=== PATIENT | female | born 1990 | race Caucasian/White ===

== ENCOUNTER 2018-10-14 06:20 | Day surgery (SDC) | payer BC ==
[~2018-10-14 06:20] MED LIST: Sodium Chloride 0.9% 10 ML SDV IV PRN; Sodium Chloride 0.9% 10 ML Syringe FLUSH PRN; Sodium Chloride 0.9% 2.5 ML Syringe FLUSH PRN
[2018-10-14] MEDS ORDERED: Propofol 200 MG/20 ML SDV ONE (06:59)
[2018-10-14] MEDS ORDERED: fentaNYL 250 MCG/5 ML SDV ONE (06:59)
[2018-10-14] MEDS ORDERED: Midazolam 1 MG/ML 2 ML SDV ONE (06:59)
[2018-10-14] MEDS ORDERED: Lactated Ringers 1,000 ML IV SCH (07:00)
[2018-10-14] MEDS ORDERED: Dexamethasone 4 MG/ML 5 ML MDV ONE (07:01)
[2018-10-14] MEDS ORDERED: Ondansetron 4 MG/2 ML SDV ONE (07:01)
--- NOTE | 2018-10-14 07:08 | PCM.PREANE ---
Preanesthetic Assessment - Anesthesia/Transfusion/Family Hx Anesthesia History: Prior Anesthesia Without Reaction Type of Anesthesia Reaction: Other (see below) (some nausea) Family History of Anesthesia Reaction: No Transfusion History: No Prior Transfusion(s) Intubation History: Unknown - Review of Systems General: No Symptoms Pulmonary: No Symptoms Cardiovascular: No Symptoms Gastrointestinal: No Symptoms Neurological: No Symptoms Other: Reports: None - Physical Assessment NPO Status Date: 10/13/18 NPO Status Time: 19:30 O2 Sat by Pulse Oximetry: 100 Respiratory Rate: 18 Vital Signs: Last Vital Signs Temp 35.8 C 10/14/18 06:45 Pulse 80 10/14/18 06:45 Resp 18 10/14/18 06:45 BP 131/76 10/14/18 06:45 Pulse Ox 100 10/14/18 06:45 Height: 1.6 m Weight: 80.739 kg ASA Class: 2 Mental Status: Alert & Oriented x3 Airway Class: Mallampati = 2 Dentition: Reports: Normal Dentition ROM/Head Extension: Full Lungs: Clear to Auscultation, Normal Respiratory Effort Cardiovascular: Regular Rate, Regular Rhythm - Lab Values: Laboratory Last Values WBC 5.18 K/uL (4.0-11.0) 10/14/18 06:45 RBC 4.63 M/uL (4.30-5.90) 10/14/18 06:45 Hgb 14.1 g/dL (12.0-16.0) 10/14/18 06:45 Hct 41.8 % (36.0-46.0) 10/14/18 06:45 MCV 90.3 fL (80.0-98.0) 10/14/18 06:45 MCH 30.5 pg (27.0-32.0) 10/14/18 06:45 MCHC 33.7 g/dL (31.0-37.0) 10/14/18 06:45 RDW Std Deviation 41.2 fl (28.0-62.0) 10/14/18 06:45 RDW Coeff of Aga 13 % (11.0-15.0) 10/14/18 06:45 Plt Count 304 K/uL (150-400) 10/14/18 06:45 MPV 9.40 fL (7.40-12.00) 10/14/18 06:45 Nucleated RBC % 0.0 /100WBC 10/14/18 06:45 Nucleated RBCs # 0 K/uL 10/14/18 06:45 - Allergies Allergies/Adverse Reactions: Allergies Allergy/AdvReac Type Severity Reaction Status Date / Time amoxicillin Allergy Vomiting Verified 10/10/18 07:11 Penicillins Allergy Abdominal Verified 10/10/18 07:11 Cramps shellfish derived Allergy Anaphylactic Verified 10/10/18 07:11 Shock - Blood Blood Available: No - Anesthesia Plan Pre-Op Medication Ordered: None - Acknowledgements Anesthesia Type Planned: General Anesthesia Pt an Appropriate Candidate for the Planned Anesthesia: Yes Alternatives and Risks of Anesthesia Discussed w Pt/Guardian: Yes Pt/Guardian Understands and Agrees with Anesthesia Plan: Yes PreAnesthesia Questionnaire HEENT History: Reports: Impaired Vision, Other (See Below) Other HEENT History: wears glasses/contacts Cardiovascular History: Reports: None Respiratory History: Reports: Asthma Other Respiratory History: had asthma as a child, Gastrointestinal History: Reports: GERD Genitourinary History: Reports: None [employer] History: Reports: Musculoskeletal History: Reports: Back Pain, Chronic, Fracture Other Musculoskeletal History: toe, herniated discs L4-L5 Neurological History: Reports: Migraines Psychiatric History: Reports: None Endocrine/Metabolic History: Reports: Obesity/BMI 30+ Hematologic History: Reports: None Immunologic History: Reports: None Oncologic (Cancer) History: Reports: None Dermatologic History: Reports: None - Past Surgical History Head Surgeries/Procedures: Reports: None HEENT Surgical History: Reports: Adenoidectomy, Myringotomy w Tube(s), Oral Surgery, Tonsillectomy Other HEENT Surgeries/Procedures: wisdon teeth Cardiovascular Surgical History: Reports: None Respiratory Surgical History: Reports: None GI Surgical History: Reports: None Female Surgical History: Reports: None Endocrine Surgical History: Reports: None Neurological Surgical History: Reports: None Musculoskeletal Surgical History: Reports: Arthroscopic Knee Other Musculoskeletal Surgeries/Procedures:: excision of nodule-left foot Oncologic Surgical History: Reports: None Dermatological Surgical History: Reports: None - SUBSTANCE USE Smoking Status *Q: Former Smoker Tobacco Use Within Last Twelve Months: No Recreational Drug Use History: No - HOME MEDS Home Medications: Home Meds Famotidine [Acid Engineering Specialist] 1 tab PO ASDIRECTED PRN 10/10/18 [History] Midrin 1 tab PO ASDIRECTED PRN 10/10/18 [History] Norgestimate-Ethinyl Estradiol [Previfem Tablet] 1 tab PO DAILY 10/10/18 [ History] Topiramate [Topamax] 1 tab PO DAILY 10/10/18 [History] - CURRENT (IN HOUSE) MEDS Current Meds: Current Medications Lactated Ringer's (Ringers, Lactated) 1,000 mls @ 100 mls/hr IV ASDIRECTED MITESH Sodium Chloride (Saline Flush) 10 ml FLUSH ASDIRECTED PRN PRN Reason: Keep Vein Open Sodium Chloride (Saline Flush) 2.5 ml FLUSH ASDIRECTED PRN PRN Reason: Keep Vein Open Sodium Chloride (Normal Saline) 10 ml IV ASDIRECTED PRN PRN Reason: IV Use Discontinued Medications Dexamethasone (Dexamethasone) Confirm Administered Dose 20 mg .ROUTE .STK-MED ONE Stop: 10/14/18 07:02 Fentanyl (Sublimaze) Confirm Administered Dose 250 mcg .ROUTE .STK-MED ONE Stop: 10/14/18 07:00 Acetaminophen (Ofirmev) Confirm Administered Dose 100 mls @ as directed IV .STK- MED ONE Stop: 10/14/18 06:57 Lidocaine HCl (Xylocaine-Mpf 1%) Confirm Administered Dose 5 mls @ as directed .ROUTE .STK-MED ONE Stop: 10/14/18 07:02 Midazolam HCl (Versed 1 Mg/Ml) Confirm Administered Dose 2 mg .ROUTE .STK-MED ONE Stop: 10/14/18 07:00 Ondansetron HCl (Zofran) Confirm Administered Dose 4 mg .ROUTE .STK-MED ONE Stop: 10/14/18 07:02 Propofol (Diprivan 20 Ml) Confirm Administered Dose 200 mg .ROUTE .STK-MED ONE Stop: 10/14/18 07:00
[2018-10-14] MEDS ORDERED: fentaNYL 100 MCG/2 ML SDV IVPUSH PRN (07:09)
[2018-10-14] MEDS ORDERED: Rocuronium 100 MG/10 ML Syringe ONE (07:38)
[2018-10-14] MEDS ORDERED: Phenylephrine/Normal Saline 100 MCG/ML 10 ML Syringe ONE (07:56)
[2018-10-14] MEDS ORDERED: Ketorolac 30 MG/ML SDV ONE (08:09)
--- NOTE | 2018-10-14 08:35 | PCM.OPNOTE ---
- General Post-Op/Procedure Note Date of Surgery/Procedure: 10/14/18 Operative Procedure(s): Diagnostic hysteroscopy/D&C/thermal endometrial ablation Findings: Normal uterine cavity Pre Op Diagnosis: Menometrorrhagia Post-Op Diagnosis: Same Anesthesia Technique: General ET Tube Primary Surgeon: Coni Kennedy Fluid Replacement, Intraop: 600 (fluid deficit hysteroscopy 45 ml) EBL in mLs: 5 Complications: none known Condition: Good Free Text/Narrative:: Dictation [id number]
[2018-10-14 09:13] VITALS: BP 101/59
--- NOTE | 2018-10-14 12:21 | OR ---
SURGEON: Coni Kennedy M.D. DATE OF PROCEDURE: 10/14/2018 PREOPERATIVE DIAGNOSIS: Menometrorrhagia. POSTOPERATIVE DIAGNOSIS: Menometrorrhagia. PROCEDURE: Diagnostic hysteroscopy with dilation and curettage of endometrium and thermal endometrial ablation. ANESTHESIA: General. FLUIDS: 600 mL of crystalloid. Fluid deficit from hysteroscope is 45 mL crystalloid. ESTIMATED BLOOD LOSS: Less than 5 mL. COMPLICATIONS: None known. FINDINGS: Normal-appearing uterine cavity. DISPOSITION: The patient to PACU, stable. PROCEDURE DETAILS: Veronica is a 28-year-old female, who has had ongoing difficulties with menometrorrhagia. This has been refractory to more conservative measures of management. At this time, she would like to proceed with surgical intervention, perform a thermal endometrial ablation. Risks of procedure have been discussed. Proper consent obtained. The patient was taken to the operating room where she underwent general endotracheal anesthesia, was placed in modified dorsal lithotomy position, was prepped and draped in the usual sterile fashion. Bladder was drained. A time- out was performed. Speculum was introduced in the vagina. The anterior lip of the cervix was grasped with an Allis clamp. The cervix was easily dilated to 5 mm. The 5 mm hysteroscope was now introduced. Using normal saline as distention media, I was able to visualize the uterine cavity. No polyps or intracavitary lesions were visualized. Ostia were visualized bilaterally. Photographs taken. The hysteroscope was now removed. Gentle curettage of endometrium was performed. Specimen to pathology. Maye device now prepped according to [place] protocol. The cervix measures approximately 4 cm. Settings were set on the device. The device was now introduced into the uterine cavity and the arms were extended. The balloon was insufflated, testing was performed which passed integrity testing. Ablative process was now performed for complete 120 seconds. At the completion of the ablation cycle, the arms were released, the balloon was desufflated, and the device removed from the uterine cavity. Hemostasis appeared evident. All instruments were removed from vagina. Sponge and instrument counts correct x2. The patient tolerated the procedure well, will go to PACU in stable condition. Specimens to pathology. CHEVY / LUISA /[id number]
== END 2018-10-14 09:28 | disposition home or self-care (01) ==
LOC: MW.SDS 06:20
PROVIDERS: ATTEND Obstetrics & Gynecology
DX: N92.1 Excessive and frequent menstruation with irregular cycle (principal); K21.9 Gastro-esophageal reflux disease without esophagitis; E66.9 Obesity, unspecified; Z68.31 Body mass index [BMI] 31.0-31.9, adult; G43.909 Migraine, unspecified, not intractable, without status migrainosus; Z87.19 Personal history of other diseases of the digestive system; Z87.09 Personal history of other diseases of the respiratory system; Z87.891 Personal history of nicotine dependence; Z79.3 Long term (current) use of hormonal contraceptives; Z88.0 Allergy status to penicillin; Z91.013 Allergy to seafood; Z32.02 Encounter for pregnancy test, result negative
CPT/HCPCS: 36415; 58353; 84703; 85027; J0131; J0330; J1100; J1885; J2001; J2250; J2370; J2405; J2704; J3010; J7120

== ENCOUNTER 2024-07-16 07:40 | Day surgery (SDC) | payer BC, OTHER ==
[~2024-07-16 07:40] MED LIST changes: +Albuterol 0.083% 2.5 MG/3 ML Neb Soln NEB PRN; +Bupivacaine 0.5% 10 ML SDV ONE; +HYDROmorphone 1 MG/ML Syringe IVPUSH PRN; +Ketamine HCL/NACL, ISO-OSM 50 MG/5 ML Syringe ONE; +Lidocaine 1% 20 ML MDV ONE; +Metoclopramide 10 MG/2 ML SDV IVPUSH PRN; +Morphine 2 MG/ML SYRINGE IVPUSH PRN; +Naloxone 0.4 MG/ML SDV IVPUSH PRN; +Ondansetron 4 MG/2 ML SDV IVPUSH PRN; +Phenylephrine HCl In 0.9% NaCl 1 MG/10 ML Syringe IVPUSH PRN; -Sodium Chloride 0.9% 10 ML SDV IV PRN; -Sodium Chloride 0.9% 10 ML Syringe FLUSH PRN; -Sodium Chloride 0.9% 2.5 ML Syringe FLUSH PRN; +fentaNYL 100 MCG/2 ML SDV ONE; +fentaNYL 50 MCG/ML SDV IVPUSH PRN; +propofoL 500 MG/50 ML 50 ML ONE
[2024-07-16] MEDS ORDERED: Scopalamine 1mg/3day Transdermal Patch TOP ONE (08:00)
[2024-07-16] MEDS: Lactated Ringers 1,000 ML IV SCH (08:20)
[2024-07-16] MEDS ORDERED: Famotidine 20 MG/2 ML SDV ONE (08:23)
[2024-07-16] MEDS ORDERED: ceFAZolin 2 GM Vial ONE (09:00)
[2024-07-16] MEDS ORDERED: Ketorolac 30 MG/ML SDV ONE (09:07)
[2024-07-16] MEDS ORDERED: Dexamethasone 4 MG/ML 5 ML MDV ONE (09:07)
[2024-07-16] MEDS ORDERED: Ondansetron 4 MG/2 ML SDV ONE (09:07)
[2024-07-16] MEDS ORDERED: Metoclopramide 10 MG/2 ML SDV ONE (09:07)
[2024-07-16 11:15] VITALS: BP 101/56; PULSE 73
== END 2024-07-16 10:47 | disposition home or self-care (01) ==
LOC: MW.SDS 07:40
PROVIDERS: ATTEND Surgery
DX: D17.1 Benign lipomatous neoplasm of skin and subcutaneous tissue of trunk (principal); F41.9 Anxiety disorder, unspecified; F32.A Depression, unspecified; Z79.899 Other long term (current) drug therapy; Z88.8 Allergy status to other drugs, medicaments and biological substances; Z88.0 Allergy status to penicillin; Z91.041 Radiographic dye allergy status; Z91.030 Bee allergy status
CPT/HCPCS: 21930; 81025; J0131; J0665; J0690; J1100; J1885; J2405; J2704; J2765; J3010; J7120; 00300; J3490